=== PATIENT | male | born 1970 | race Caucasian/White ===

== ENCOUNTER 2022-05-07 15:05 | Inpatient (IN) | payer OTHER ==
[~2022-05-07] VITALS: Ht 175.3 cm; Wt 92.5 kg
[2022-05-07] MEDS ORDERED: ASPIRIN 325MG EC TABLET PO ONE (17:15)
[2022-05-07 17:34] LABS: BASOPHILS % 0.7 % (0.0-2.0); EOSINOPHILS % 1.6 % (0.0-5.0); HEMATOCRIT. 44.8 % (42.0-52.0); HEMOGLOBIN. 15.3 g/dL (14.0-18.0); LYMPHOCYTES % 24.6 % (20.0-50.0); MEAN CORPUSCULAR HEMOGLOBIN 28.6 pg (28.0-32.0); MEAN CORPUSCULAR VOLUME 83.5 fL (80.0-94.0); MEAN PLATELET VOLUME 8.7 fl (7.4-10.4); MONOCYTES % 9.3 % (2.0-8.0); NEUTROPHILS % 63.8 % (40.0-76.0); PLATELET 233 x1000/uL (130-400); RED BLOOD CELL COUNT 5.36 mill/uL (4.7-6.1); RED CELL DISTRIBUTION WIDTH 14.1 % (11.6-14.6)
[2022-05-07 17:39] LABS: CHLORIDE 106 mEq/L (98-107)
[2022-05-07] MEDS ORDERED: KETOROLAC 60MG/2ML VIAL IM ONE (20:45)
[2022-05-07] MEDS ORDERED: ASPIRIN 325MG EC TABLET PO NR (20:45)
[2022-05-07] MEDS ORDERED: AMPICILLIN SOD/SULBACTAM NA 3 G in SODIUM CHLORIDE 0.9% 100 ML IV SCH (22:45)
[2022-05-08] MEDS ORDERED: ACETAMINOPHEN 325MG TABLET PO PRN (08:45)
[2022-05-08] MEDS ORDERED: IPRATROPIUM/ALBUTEROL 0.5-3(2.5)MG/3ML NEB HHN PRN (08:45)
[2022-05-08] MEDS ORDERED: ONDANSETRON HCL 4MG/2ML INJ IV PRN (08:45)
[2022-05-08] MEDS ORDERED: SODIUM CHLORIDE 10% FOR INH 15ML VIAL NEB INH SCH (09:00)
[2022-05-08] MEDS: ALBUTEROL (0.083%) 2.5MG/3ML NEB HHN SCH ×2 (12:00→19:35)
[2022-05-08] MEDS ORDERED: TRAMADOL 50MG TABLET PO PRN (19:00)
[2022-05-08 20:41] LABS: CHLORIDE 108 mEq/L (98-107)
[2022-05-08] MEDS ORDERED: ENOXAPARIN 40MG/0.4ML SYR SUBCUT SCH (21:00)
[2022-05-08] MEDS ORDERED: FAMOTIDINE 20MG TABLET PO SCH (21:00)
[2022-05-08 21:43] VITALS: BP 133/89
[2022-05-08] MEDS ORDERED: HYDROCODONE/ACETAMINOPHEN 5/325MG TABLET PO PRN (22:45)
[2022-05-08] MEDS ORDERED: NALOXONE HCL 0.4MG/ML VIAL IV PRN (23:00)
[2022-05-08] MEDS ORDERED: ALBUTEROL (0.083%) 2.5MG/3ML NEB HHN PRN (23:15)
[2022-05-08] MEDS ORDERED: IPRATROPIUM BROMIDE (0.02%) 0.5MG/2.5ML NEB HHN PRN (23:15)
[2022-05-08] MEDS: DOCUSATE SODIUM 250MG CAPSULE PO SCH (23:23)
[2022-05-08] MEDS: AMLODIPINE 10MG TABLET PO SCH (23:24)
[2022-05-09] VITALS: BP 132/88
[2022-05-09] MEDS: ALBUTEROL (0.083%) 2.5MG/3ML NEB HHN SCH ×3 (01:22→15:00)
[2022-05-09 04:00] VITALS: BP 129/82
[2022-05-09 08:00] VITALS: BP 159/98
[2022-05-09] MEDS: DOCUSATE SODIUM 250MG CAPSULE PO SCH (08:55)
[2022-05-09] MEDS: AMLODIPINE 10MG TABLET PO SCH (08:55)
[2022-05-09] MEDS ORDERED: FAMOTIDINE 20MG TABLET PO SCH (09:00)
[2022-05-09 12:00] VITALS: BP 138/86
[2022-05-09] MEDS ORDERED: AMLO10TA80 PO (14:15)
[2022-05-09] MEDS ORDERED: ALBU6.7H3 INH (14:15)
[2022-05-09] MEDS ORDERED: GUAI600T26 MT (14:15)
[2022-05-09] MEDS ORDERED: [UNRECOGNIZED DRUG - CODE] PO (14:15)
[2022-05-09 14:29] VITALS: BP 132/86
[2022-05-09] MEDS ORDERED: ENOXAPARIN 30MG/0.3ML SYR SUBCUT SCH (21:00)
[2022-05-12 04:09] LABS: HIV SCREEN 4G Non Reactive (Non Reactive)
[2022-05-13 19:09] LABS: *ASPERGILLUS FUMIGATUS IGG 10.7 mg/L (0.0-68.6)
== END 2022-05-09 16:29 | disposition home or self-care (01) | DRG 724 ==
LOC: ER 15:05 → MICUSO 21:50 → 6EST 05-08 21:43
PROVIDERS: ADMIT Internal Medicine; ATTEND Internal Medicine
DX: B44.9 Aspergillosis, unspecified (principal); N17.9 Acute kidney failure, unspecified; R91.1 Solitary pulmonary nodule; F41.9 Anxiety disorder, unspecified; I10 Essential (primary) hypertension; Z83.3 Family history of diabetes mellitus; Z79.899 Other long term (current) drug therapy; Z86.11 Personal history of tuberculosis
CPT/HCPCS: 36415; 71045; 71250; 80048; 80053; 83880; 84145; 84484; 85025; 86606; 86635; 86698; 87116; 87389; 93005; 99285; J0295; J1650; J1885; J7050; J7131